=== PATIENT | female | born 1950 | race Caucasian/White ===

== ENCOUNTER → 2017-11-23 | Outpatient (CLI) | payer MEDICARE, BC ==
[~2017-11-23] MED LIST: ASPI-764 PO; DIPH-740 PO; FISH OIL1 CAP PO; FLU180SY9 IM; GEM600 PO; METO50TA19 PO; MULT-1 PO; PNEU0.5D3 IM; PRAV40TA77 PO
[2017-11-23 10:01] LABS: PLATELET COUNT, AUTOMATED 204 K/uL (150-450)
[2017-11-23 11:00] LABS: LDL CHOLESTEROL 111 mg/dl
== END ==
LOC: LAB 09:47
PROVIDERS: ATTEND Nurse Practitioner Family
DX: I10 Essential (primary) hypertension (principal); E78.5 Hyperlipidemia, unspecified
CPT/HCPCS: 36415; 82040; 82247; 82310; 82374; 82435; 82465; 82565; 82947; 83718; 84075; 84132; 84155; 84295; 84443; 84450; 84460; 84478; 84520; 85025

== ENCOUNTER → 2018-03-25 | Outpatient (CLI) | payer MEDICARE, BC ==
--- NOTE | 2018-03-25 09:08 | RADIOLOGY IMAGING REPORT ---
FACILITY: [facility] PATIENT NAME: Manuela Rascon : 1950 MR: [id number] V: [id number] EXAM DATE: ORDERING PHYSICIAN: TIM TREVINO TECHNOLOGIST: [facility] Patient: Manuela Rascon : 1950 Visit/Account:[id number] Date of Sevice: 03/25/2018 DEXA Scan Clinical history: Postmenopausal screening. Comparison: None available. LUMBAR SPINE: The bone mineral density (BMD) measured from L1-L4 correlates with a Z-score 1.4 and a T-score of 0.3 which is Normal as defined by the World Health Organization. The corresponding risk of fracture in the lumbar spine is Not increased compared with a young adult reference population. HIP: Bone mineral density (BMD) measured in the right total hip region correlates with a Z-score -0.1 and a T-score of -0.9 which is Normal as defined by the World Health Organization. The corresponding ris k of fracture in the hip is 1-2 times increased compared with a young adult reference population. T score right femoral neck -1.6 Bone mineral density (BMD) measured in the Femoral Neck region measures 0.816 g/cm2. Impression: 1. Lumbar spine: Normal. 2. Left Hip: Normal. 3. Femoral Neck: Bone Mineral Density is 0.816 g/cm2 The next DEXA scan of this patient should include the following sites: L1-L4 and the right hip. FRAX? WHO Fracture Risk Assessment Tool link: <http://www.shef.ac.uk/FRAX/tool.jsp?locationValue=9> PLEASE NOTE: 1) The World Health Organization defines low BMD as follows: T-score Normal > -1 Osteopenia < -1 and > -2.5 Osteoporosis < -2.5 without fractures Established osteoporosis < -2.5 with fractures 2) In general, you may wish to consider: Diagnosis Treatment Follow-up DEXA Normal BMD Prevention 2-3 years Osteopenia Prevention/therapy 1-2 years Osteoporosis Therapy Yearly 3) Fracture risk estimated from the T-score is more accurate for vertebral fractures (often spontane ous) than for hip fractures. Report Dictated By: Lyla Mullen MD at 03/25/2018 9:03 AM Report E-Signed By: Lyla Mullen MD at 03/25/2018 9:04 AM JANEYN:VIDAL
--- NOTE | 2018-03-25 15:46 | RADIOLOGY IMAGING REPORT ---
FACILITY: [facility] [place] PATIENT NAME: INGA STOVER : [id number] MR: [id number] V: [id number] EXAM DATE: [id number] ORDERING PHYSICIAN: TIM TREVINO TECHNOLOGIST: Nichol Morgan PROCEDURE:BILATERAL DIGITAL SCREENING MAMMOGRAM WITH CAD ASSISTED INTERPRETATION & 3D TOMOSYNTHESIS COMPARISON:Prior mammograms 03/14/14 INDICATIONS:screening FINDINGS: Small to moderate amount of fibroglandular tissue is seen throughout the breasts. The parenchymal pattern has remained stable allowing for difference in mammographic technique & patient positioning. There is no evidence of malignant appearing mass, malignant appearing calcifications or other secondary sign of malignancy in either breast. DIAGNOSTIC CATEGORY 1--NEGATIVE. RECOMMENDATIONS: ROUTINE MAMMOGRAM AND CLINICAL EVALUATION. IMPRESSION: BIRADS 1: Negative No significant abnormality is seen. Dictated by: Lyla Mullen M.D. on 03/25/2018 at 12:43 Transcribed by: PAVEL on 03/25/2018 at 13:01 Approved by: Lyla Mullen M.D. on 03/25/2018 at 15:45 [facility]
== END ==
LOC: MAMO 03:24
PROVIDERS: ATTEND Nurse Practitioner Family
DX: Z13.820 Encounter for screening for osteoporosis (principal); Z12.31 Encounter for screening mammogram for malignant neoplasm of breast; Z11.59 Encounter for screening for other viral diseases; Z78.0 Asymptomatic menopausal state
CPT/HCPCS: 36415; 77063; 77067; 77080; G0472; 82040; 82247; 82310; 82374; 82435; 82565; 82947; 84075; 84132; 84155; 84295; 84450; 84460; 84520; 86803

== ENCOUNTER → 2019-03-03 | Outpatient (CLI) | payer MEDICARE, BC ==
[~2019-03-03] MED LIST changes: +CEPH500C24 PO; +DIAZ-308 PO
[2019-03-03 10:46] LABS: PLATELET COUNT, AUTOMATED 212 K/uL (150-450)
[2019-03-03 11:06] LABS: LDL CHOLESTEROL 91 mg/dl
== END ==
LOC: LAB 10:19
PROVIDERS: ATTEND Nurse Practitioner Family
DX: R30.0 Dysuria (principal); I10 Essential (primary) hypertension
CPT/HCPCS: 36415; 81001; 82040; 82247; 82310; 82374; 82435; 82465; 82565; 82947; 83718; 84075; 84132; 84155; 84295; 84443; 84450; 84460; 84478; 84520; 85025; 87088

== ENCOUNTER → 2019-03-16 | Outpatient (CLI) | payer MEDICARE, BC ==
[~2019-03-16] MED LIST changes: +NITR-105 PO; +VARI50KI IM
== END ==
LOC: LAB 11:34
PROVIDERS: ATTEND Nurse Practitioner Family
DX: N39.0 Urinary tract infection, site not specified (principal)
CPT/HCPCS: 81001; 87088